=== PATIENT | female | born 1950 | race African-American/Black ===

== ENCOUNTER → 2017-05-29 | Outpatient (CLI) | payer MEDICARE, MEDICAID ==
[~2017-05-29] MED LIST: ASPI-1158 PO; ASPI-1159 PO; CELE200C PO; CELE50CA MT; CLOP75TA33 PO; DEXL60CA3 PO; DICY20TA54 PO; HYDR-523 PO; HYDR25TA PO; IBUP-1636 PO; IRBE300T18 PO; IRBE75TA10 MT; METO25TA6 PO; TRAM50TA73 PO; ZOLP5TAB2 PO
[2017-05-29 16:09] LABS: PARTIAL THROMBOPLASTIN TIME 25.4 sec (23.4-31.0); PROTHROMBIN TIME 10.5 sec (9.4-11.6)
== END | disposition home or self-care (01) ==
LOC: LAB 15:07
PROVIDERS: ATTEND Internal Medicine Pulmonary Disease
DX: I65.23 Occlusion and stenosis of bilateral carotid arteries (principal); M47.16 Other spondylosis with myelopathy, lumbar region; K58.9 Irritable bowel syndrome, unspecified; M79.1 Myalgia
CPT/HCPCS: 36415; 85610; 85730; 86850; 86900; 86920

== ENCOUNTER 2017-06-10 06:36 | Inpatient (IN) | payer MEDICARE, MEDICAID ==
[~2017-06-10] VITALS: Ht 165.1 cm; Wt 88.9 kg
[2017-06-10] VITALS (29 sets, daily range): BP systolic 90–145; BP diastolic 38–110
[~2017-06-10 06:36] MED LIST changes: -ASPI-1158 PO; -ASPI-1159 PO; -CELE50CA MT; -IBUP-1636 PO; -IRBE75TA10 MT
[2017-06-10] MEDS ORDERED: THROMBIN (BOVINE) 5000 UNITS/VIAL TOP ONE (07:45)
[2017-06-10] MEDS ORDERED: BACITRACIN 50,000 UNITS/VIAL ONE ×2 (07:45→07:46)
[2017-06-10] MEDS ORDERED: GELATIN SPONGE,ABSORBABLE SZ 100 ONE (07:45)
[2017-06-10] MEDS ORDERED: NORMAL SALINE 0.9% 10 ML SYR ONE (07:45)
[2017-06-10] MEDS ORDERED: LIDOCAINE HCL 1%/EPI 1:200,000 30 ML VIAL ONE (07:45)
[2017-06-10 07:54] LABS: PARTIAL THROMBOPLASTIN TIME 24.7 sec (23.4-31.0); PROTHROMBIN TIME 10.5 sec (9.4-11.6)
[2017-06-10] MEDS ORDERED: SODIUM CHLORIDE 0.9% 1,000 ML IV SCH (08:00)
[2017-06-10] MEDS ORDERED: ASPI-1159 PO (08:03)
[2017-06-10] MEDS ORDERED: IBUP-1636 PO (08:03)
[2017-06-10] MEDS ORDERED: MIDAZOLAM HCL 2 MG/2 ML VIAL ONE (10:29)
[2017-06-10] MEDS ORDERED: FENTANYL CITRATE/PF 50MCG/ML 2ML VIAL ONE (10:29)
[2017-06-10] MEDS ORDERED: ACETAMINOPHEN 325MG TABLET PO PRN (11:00)
[2017-06-10] MEDS ORDERED: IPRATROPIUM/ALBUTEROL 0.5-3(2.5)MG/3ML NEB INH PRN (11:00)
[2017-06-10] MEDS ORDERED: DIPHENHYDRAMINE 50MG/ML VIAL IV PRN (11:00)
[2017-06-10] MEDS ORDERED: MORPHINE SULFATE 2 MG/ML CPJ (NOT FOR IM USE) IV PRN (11:00)
[2017-06-10] MEDS ORDERED: HYDROCODONE/ACETAMINOPHEN 10/325MG TABLET PO PRN (11:00)
[2017-06-10] MEDS ORDERED: HYDROMORPHONE HCL/PF 2MG/ML (OR) ONE (11:09)
[2017-06-10] MEDS ORDERED: GLYCOPYRROLATE 0.2 MG/ML 2ML VIAL ONE (13:27)
[2017-06-10] MEDS ORDERED: NEOSTIGMINE METHYLSULFATE 1MG/ML 10 ML VIAL ONE (13:27)
[2017-06-10] MEDS ORDERED: SODIUM CHLORIDE 0.9% 10ML VIAL ONE (13:30)
[2017-06-10] MEDS ORDERED: LIDOCAINE HCL 1% 20ML VIAL (Pyxis) INJ ONE (13:30)
[2017-06-10] MEDS ORDERED: SUCCINYLCHOLINE CHLORIDE 200MG/10ML VIAL IV ONE (13:30)
[2017-06-10] MEDS ORDERED: ROCURONIUM BROMIDE 10MG/ML VIAL 5ML IV ONE (13:30)
[2017-06-10] MEDS ORDERED: DEXAMETHASONE 4MG/ML 1ML VIAL ONE (13:30)
[2017-06-10] MEDS ORDERED: CEFAZOLIN SODIUM 1000MG/VIAL ONE (13:30)
[2017-06-10] MEDS ORDERED: PROPOFOL 200MG/20ML VIAL IV ONE (13:30)
[2017-06-10] MEDS ORDERED: CEFAZOLIN SODIUM 1000MG/VIAL IV SCH (14:00)
[2017-06-10] MEDS ORDERED: ONDANSETRON INJ IV PRN (14:00)
[2017-06-10] MEDS ORDERED: NALOXONE INJ IV PRN (14:00)
[2017-06-10] MEDS ORDERED: DIPHENHYDRAMINE INJ IV PRN (14:00)
[2017-06-10] MEDS: HYDROMORPHONE PCA 10MG/50ML IV PRN (14:08)
[2017-06-10] MEDS: DEXT 5%/LACTATED RINGERS 1,000 ML IV SCH (17:29)
[2017-06-10] MEDS ORDERED: NICARDIPINE 100 MG in SODIUM CHLORIDE 0.9% 60 ML IV PRN (18:30)
[2017-06-10] MEDS: CEFAZOLIN 1000MG PREMIX 50 ML IV SCH (18:56)
[2017-06-10] MEDS: PANTOPRAZOLE 40MG DR TABLET PO SCH (21:00)
[2017-06-10] MEDS ORDERED: PNEUMOCOCCAL 23-VAL P-SAC VAC 0.5 ML IM ONE (21:15)
[2017-06-10] MEDS: DICYCLOMINE HCL 20MG TABLET PO SCH (23:39)
[2017-06-11] VITALS (64 sets, daily range): BP systolic 83–140; BP diastolic 28–82
[2017-06-11] MEDS: CEFAZOLIN 1000MG PREMIX 50 ML IV SCH ×2 (02:17→10:00)
[2017-06-11] MEDS: DEXT 5%/LACTATED RINGERS 1,000 ML IV SCH ×2 (04:17→07:00)
[2017-06-11] MEDS: DICYCLOMINE HCL 20MG TABLET PO SCH ×3 (06:00→23:40)
[2017-06-11 06:11] LABS: HEMOGLOBIN 9.8 g/dL (12.0-16.0); MEAN CORPUSCULAR HEMOGLOBIN 33.7 pg (28.0-32.0); MEAN CORPUSCULAR VOLUME 99.5 fL (81.0-99.0); PLATELET 163 x1000/uL (130-400); RED BLOOD CELL COUNT 2.92 mill/uL (4.2-5.4); RED CELL DISTRIBUTION WIDTH 13.2 % (11.6-14.6)
[2017-06-11] MEDS: PANTOPRAZOLE 40MG DR TABLET PO SCH (06:30)
[2017-06-11 06:36] LABS: CARBON DIOXIDE 25 mEq/L (21-32); CHLORIDE 112 mEq/L (98-107)
[2017-06-11] MEDS ORDERED: LOSARTAN POTASSIUM 100 MG TABLET PO SCH (09:00)
[2017-06-11] MEDS ORDERED: ONDANSETRON HCL 4MG/2ML VIAL IV PRN (09:00)
[2017-06-11] MEDS: HYDROMORPHONE PCA 10MG/50ML IV PRN (16:31)
[2017-06-12] VITALS (11 sets, daily range): BP systolic 119–142; BP diastolic 59–101
[2017-06-12] MEDS: MORPHINE SULFATE 4 MG/ML CPJ (NOT FOR IM USE) IV PRN ×3 (04:38→18:37)
[2017-06-12] MEDS: DICYCLOMINE HCL 20MG TABLET PO SCH ×3 (06:24→17:31)
[2017-06-12] MEDS ORDERED: PANTOPRAZOLE 40MG DR TABLET PO SCH (06:30)
[2017-06-12] MEDS: LOSARTAN POTASSIUM 100 MG TABLET PO SCH (09:42)
[2017-06-12] MEDS: HYDROMORPHONE PCA 10MG/50ML IV PRN (13:03)
[2017-06-12] MEDS: DOCUSATE SODIUM 100MG CAPSULE PO SCH (17:31)
[2017-06-12] MEDS: POLYETHYLENE GLYCOL 3350 (17GM) 1 DOSE PACK PO SCH (21:50)
[2017-06-13] VITALS (7 sets, daily range): BP systolic 104–142; BP diastolic 51–73
[2017-06-13] MEDS: MORPHINE SULFATE 4 MG/ML CPJ (NOT FOR IM USE) IV PRN ×4 (05:36→22:07)
[2017-06-13] MEDS: DICYCLOMINE HCL 20MG TABLET PO SCH ×4 (05:41→17:15)
[2017-06-13] MEDS: PANTOPRAZOLE 40MG DR TABLET PO SCH (07:14)
[2017-06-13] MEDS: LOSARTAN POTASSIUM 100 MG TABLET PO SCH (08:42)
[2017-06-13] MEDS: DOCUSATE SODIUM 100MG CAPSULE PO SCH ×2 (08:43→17:15)
[2017-06-13] MEDS ORDERED: LACTULOSE 20G/30ML UDC PO SCH (10:00)
[2017-06-13] MEDS ORDERED: HYDROCODONE/ACETAMINOPHEN 10/325MG TABLET PO PRN (19:00)
[2017-06-13] MEDS: POLYETHYLENE GLYCOL 3350 (17GM) 1 DOSE PACK PO SCH (22:03)
[2017-06-14] VITALS: BP 116/53
[2017-06-14] MEDS: DICYCLOMINE HCL 20MG TABLET PO SCH ×3 (00:23→11:35)
[2017-06-14] MEDS: MORPHINE SULFATE 4 MG/ML CPJ (NOT FOR IM USE) IV PRN ×2 (02:37→11:22)
[2017-06-14 04:00] VITALS: BP 114/89
[2017-06-14] MEDS: PANTOPRAZOLE 40MG DR TABLET PO SCH (06:49)
[2017-06-14 07:48] LABS: BASOPHILS % 0.4 % (0.0-2.0); HEMOGLOBIN. 9.9 g/dL (12.0-16.0); LYMPHOCYTES % 16.6 % (20.0-50.0); MEAN CORPUSCULAR HEMOGLOBIN 33.4 pg (28.0-32.0); MEAN PLATELET VOLUME 8.8 fl (7.4-10.4); MONOCYTES % 6.7 % (2.0-8.0); NEUTROPHILS % 75.3 % (40.0-76.0); PLATELET 185 x1000/uL (130-400); RED BLOOD CELL COUNT 2.96 mill/uL (4.2-5.4)
[2017-06-14 08:00] VITALS: BP 113/79
[2017-06-14 08:34] LABS: CARBON DIOXIDE 27 mEq/L (21-32); CHLORIDE 102 mEq/L (98-107)
[2017-06-14] MEDS: LOSARTAN POTASSIUM 100 MG TABLET PO SCH (08:46)
[2017-06-14] MEDS: DOCUSATE SODIUM 100MG CAPSULE PO SCH (08:46)
[2017-06-14] MEDS ORDERED: POTASSIUM CHLORIDE 20MEQ TABLET SR PO SCH (10:15)
[2017-06-14] MEDS ORDERED: BISACODYL 10MG SUPP PR NR (11:15)
[2017-06-14] MEDS: LACTULOSE 20G/30ML UDC PO SCH ×2 (11:33→13:00)
[2017-06-14 12:00] VITALS: BP 103/52
[2017-06-14] MEDS ORDERED: GABAPENTIN 100MG CAPSULE PO SCH (14:00)
[2017-06-14 16:24] VITALS: BP 18/103
[2017-06-15] MEDS ORDERED: METO25TA6 PO (01:05)
[2017-06-15] MEDS ORDERED: CELE50CA MT (01:05)
[2017-06-15] MEDS ORDERED: IRBE75TA10 MT (01:05)
[2017-06-15] MEDS ORDERED: ZOLP5TAB2 PO (01:05)
[2017-06-15] MEDS ORDERED: DEXL60CA3 PO (01:05)
[2017-06-15] MEDS ORDERED: HYDR-523 PO (01:05)
[2017-06-15] MEDS ORDERED: HYDR25TA PO (01:05)
[2017-06-15] MEDS ORDERED: ASPI-1158 PO (01:05)
== END 2017-06-14 17:20 | DRG 460 ==
LOC: OR 06:36 → MICUSO 06:37 → 6EST 06-12 02:45 → UNDODISIN 06-12 12:55
PROVIDERS: ADMIT Internal Medicine Pulmonary Disease; ATTEND Internal Medicine Pulmonary Disease
PROC: 0ST20ZZ Resection of Lumbar Vertebral Disc, Open Approach (ICD-10-PCS; 2017-06-10)
PROC: 01NB0ZZ Release Lumbar Nerve, Open Approach (ICD-10-PCS; 2017-06-10)
PROC: 0SP004Z Removal of Internal Fixation Device from Lumbar Vertebral Joint, Open Approach (ICD-10-PCS; 2017-06-10)
PROC: 0SP304Z Removal of Internal Fixation Device from Lumbosacral Joint, Open Approach (ICD-10-PCS; 2017-06-10)
PROC: 0SG00A1 (ICD-10-PCS; principal; 2017-06-10 11:00)
DX: M43.16 Spondylolisthesis, lumbar region (principal); E46 Unspecified protein-calorie malnutrition; I10 Essential (primary) hypertension; K21.9 Gastro-esophageal reflux disease without esophagitis; K58.9 Irritable bowel syndrome, unspecified; I73.9 Peripheral vascular disease, unspecified; D64.9 Anemia, unspecified; D72.829 Elevated white blood cell count, unspecified; F17.210 Nicotine dependence, cigarettes, uncomplicated; G89.4 Chronic pain syndrome; M48.06 Spinal stenosis, lumbar region; M79.7 Fibromyalgia; N31.9 Neuromuscular dysfunction of bladder, unspecified; R32 Unspecified urinary incontinence; K59.00 Constipation, unspecified; Z96.651 Presence of right artificial knee joint; Z90.710 Acquired absence of both cervix and uterus; Z83.3 Family history of diabetes mellitus; Z98.1 Arthrodesis status; Z88.0 Allergy status to penicillin; Z81.8 Family history of other mental and behavioral disorders; Z84.89 Family history of other specified conditions; Z68.32 Body mass index [BMI] 32.0-32.9, adult
CPT/HCPCS: 36415; 72100; 80048; 85025; 85027; 85610; 85730; 86850; 86900; 88300; 88304; 88311; 90732; 93970; 95863; 95925; 95926; 97163; 97166; 97530; 97760; A4216; C1713; J0330; J0690; J1100; J1170; J2250; J2270; J2704; J2710; J3010; J3490; J7030; J7050; J7121

== ENCOUNTER 2017-06-14 17:30 | Inpatient (IN) | payer MEDICARE, MEDICAID ==
[~2017-06-14] VITALS: Ht 165.1 cm; Wt 88.5 kg
[~2017-06-14 17:30] MED LIST changes: +ASPI-1159 PO; +IBUP-1636 PO
[2017-06-14 18:00] VITALS: BP 113/52
[2017-06-14] MEDS ORDERED: MORPHINE SULFATE 4 MG/ML CPJ (NOT FOR IM USE) IV PRN (19:45)
[2017-06-14] MEDS ORDERED: ONDANSETRON HCL 4MG/2ML VIAL IV PRN (19:45)
[2017-06-14] MEDS ORDERED: IPRATROPIUM/ALBUTEROL 0.5-3(2.5)MG/3ML NEB HHN PRN (19:45)
[2017-06-14 20:00] VITALS: BP 132/81
[2017-06-14] MEDS: MORPHINE SULFATE 4 MG/ML CPJ (NOT FOR IM USE) IV PRN (20:18)
[2017-06-14] MEDS: POLYETHYLENE GLYCOL 3350 (17GM) 1 DOSE PACK PO SCH (20:25)
[2017-06-14] MEDS: ENOXAPARIN 40MG/0.4ML SYR SUBCUT SCH (20:31)
[2017-06-14] MEDS: GABAPENTIN 100MG CAPSULE PO SCH (22:43)
[2017-06-14] MEDS: DICYCLOMINE HCL 20MG TABLET PO SCH (23:06)
[2017-06-14] MEDS: ACETAMINOPHEN 325MG TABLET PO PRN (23:34)
[2017-06-15] MEDS: MORPHINE SULFATE 4 MG/ML CPJ (NOT FOR IM USE) IV PRN ×3 (00:44→15:24)
[2017-06-15] MEDS ORDERED: HYDR-523 PO (01:05)
[2017-06-15] MEDS ORDERED: METO25TA6 PO (01:05)
[2017-06-15] MEDS ORDERED: DEXL60CA3 PO (01:05)
[2017-06-15] MEDS ORDERED: ASPI-1158 PO (01:05)
[2017-06-15] MEDS ORDERED: IRBE75TA10 MT (01:05)
[2017-06-15] MEDS ORDERED: HYDR25TA PO (01:05)
[2017-06-15] MEDS ORDERED: ZOLP5TAB2 PO (01:05)
[2017-06-15] MEDS ORDERED: CELE50CA MT (01:05)
[2017-06-15] MEDS: DICYCLOMINE HCL 20MG TABLET PO SCH ×4 (05:28→23:05)
[2017-06-15] MEDS: GABAPENTIN 100MG CAPSULE PO SCH ×3 (05:28→22:13)
[2017-06-15] MEDS: PANTOPRAZOLE 40MG DR TABLET PO SCH (06:45)
[2017-06-15 07:29] LABS: CARBON DIOXIDE 29 mEq/L (21-32); CHLORIDE 102 mEq/L (98-107); PREALBUMIN 13.4 mg/dL (20.0-40.0)
[2017-06-15 07:39] LABS: BASOPHILS % 0.4 % (0.0-2.0); EOSINOPHILS % 1.9 % (0.0-5.0); HEMOGLOBIN. 9.4 g/dL (12.0-16.0); LYMPHOCYTES % 20.5 % (20.0-50.0); MEAN CORPUSCULAR HEMOGLOBIN 34.5 pg (28.0-32.0); MEAN CORPUSCULAR VOLUME 99.2 fL (81.0-99.0); MEAN PLATELET VOLUME 8.9 fl (7.4-10.4); MONOCYTES % 10.6 % (2.0-8.0); NEUTROPHILS % 66.6 % (40.0-76.0); PLATELET 204 x1000/uL (130-400); RED BLOOD CELL COUNT 2.72 mill/uL (4.2-5.4); RED CELL DISTRIBUTION WIDTH 12.5 % (11.6-14.6)
[2017-06-15 08:00] VITALS: BP 114/46
[2017-06-15] MEDS: LOSARTAN POTASSIUM 100 MG TABLET PO SCH (09:00)
[2017-06-15] MEDS: DOCUSATE SODIUM 100MG CAPSULE PO SCH ×2 (09:06→17:43)
[2017-06-15] MEDS: ACETAMINOPHEN 325MG TABLET PO PRN (14:47)
[2017-06-15 19:00] VITALS: BP 95/56
[2017-06-15 21:31] LABS: CLARITY URINE CLEAR (CLEAR); COLOR URINE DARK YELLOW (YELLOW); GLUCOSE URINE NEGATIVE (NEGATIVE); KETONES URINE NEGATIVE (NEGATIVE); LEUKOCYTE ESTERASE URINE TRACE (NEGATIVE); NITRITE URINE NEGATIVE (NEGATIVE); OCCULT BLOOD URINE NEGATIVE (NEGATIVE); PH URINE 5.5 (4.5-8.0); PROTEIN URINE NEGATIVE (NEGATIVE)
[2017-06-15] MEDS: ENOXAPARIN 40MG/0.4ML SYR SUBCUT SCH (22:13)
[2017-06-15] MEDS: POLYETHYLENE GLYCOL 3350 (17GM) 1 DOSE PACK PO SCH (22:13)
[2017-06-15] MEDS: HYDROCODONE/ACETAMINOPHEN 10/325MG TABLET PO PRN (22:20)
[2017-06-16] MEDS: ACETAMINOPHEN 325MG TABLET PO PRN (02:21)
[2017-06-16] MEDS: PANTOPRAZOLE 40MG DR TABLET PO SCH (06:48)
[2017-06-16] MEDS: GABAPENTIN 100MG CAPSULE PO SCH ×3 (06:48→21:48)
[2017-06-16] MEDS: DICYCLOMINE HCL 20MG TABLET PO SCH ×3 (06:48→17:37)
[2017-06-16] MEDS: HYDROCODONE/ACETAMINOPHEN 10/325MG TABLET PO PRN ×3 (06:51→16:01)
[2017-06-16 08:00] VITALS: BP 105/60
[2017-06-16 08:34] VITALS: BP 127/71
[2017-06-16] MEDS: DOCUSATE SODIUM 100MG CAPSULE PO SCH ×2 (08:34→17:37)
[2017-06-16] MEDS: LOSARTAN POTASSIUM 100 MG TABLET PO SCH (08:34)
[2017-06-16 20:00] VITALS: BP 101/45
[2017-06-16] MEDS: POLYETHYLENE GLYCOL 3350 (17GM) 1 DOSE PACK PO SCH (21:48)
[2017-06-16] MEDS: ENOXAPARIN 40MG/0.4ML SYR SUBCUT SCH (21:48)
[2017-06-17] MEDS: DICYCLOMINE HCL 20MG TABLET PO SCH ×5 (00:15→23:29)
[2017-06-17] MEDS: ACETAMINOPHEN 325MG TABLET PO PRN (00:16)
[2017-06-17] MEDS: GABAPENTIN 100MG CAPSULE PO SCH ×3 (05:46→21:47)
[2017-06-17] MEDS: PANTOPRAZOLE 40MG DR TABLET PO SCH (05:46)
[2017-06-17] MEDS: HYDROCODONE/ACETAMINOPHEN 10/325MG TABLET PO PRN ×4 (05:54→22:02)
[2017-06-17 06:36] LABS: BASOPHILS % 0.4 % (0.0-2.0); EOSINOPHILS % 2.4 % (0.0-5.0); HEMATOCRIT. 26.9 % (36.0-48.0); HEMOGLOBIN. 9.3 g/dL (12.0-16.0); LYMPHOCYTES % 22.9 % (20.0-50.0); MEAN PLATELET VOLUME 8.5 fl (7.4-10.4); MONOCYTES % 9.8 % (2.0-8.0); NEUTROPHILS % 64.5 % (40.0-76.0); PLATELET 292 x1000/uL (130-400); RED BLOOD CELL COUNT 2.75 mill/uL (4.2-5.4); RED CELL DISTRIBUTION WIDTH 12.8 % (11.6-14.6)
[2017-06-17 06:54] LABS: FERRITIN 106 ng/mL (10-291)
[2017-06-17 07:24] LABS: CARBON DIOXIDE 26 mEq/L (21-32); CHLORIDE 101 mEq/L (98-107); HDL CHOLESTEROL 31 mg/dL (40-59); LDL CHOLESTEROL 47 mg/dL (5-100); PHOSPHORUS 2.8 mg/dL (2.5-4.9); TOTAL IRON BINDING CAPACITY 248 ug/dL (250-450)
[2017-06-17 08:00] VITALS: BP_SYST 121; BP_SYST 99; BP_DIAS 64; BP_DIAS 73
[2017-06-17 08:20] LABS: VITAMIN B12 SERUM 1953 pg/mL (211-911)
[2017-06-17 08:32] LABS: FOLIC ACID (FOLATE) SERUM > 20.00 ng/mL (>5.38)
[2017-06-17] MEDS: DOCUSATE SODIUM 100MG CAPSULE PO SCH ×2 (09:54→17:41)
[2017-06-17] MEDS: LOSARTAN POTASSIUM 100 MG TABLET PO SCH (09:54)
[2017-06-17 17:10] VITALS: BP 116/44
[2017-06-17] MEDS: CELECOXIB 200MG CAPSULE PO SCH (19:15)
[2017-06-17 20:00] VITALS: BP 115/51
[2017-06-17] MEDS: ENOXAPARIN 40MG/0.4ML SYR SUBCUT SCH (20:00)
[2017-06-17] MEDS: POLYETHYLENE GLYCOL 3350 (17GM) 1 DOSE PACK PO SCH (21:00)
[2017-06-17] MEDS: IRON SUCROSE COMPLEX 100 MG in SODIUM CHLORIDE 0.9% 100 ML IV SCH (23:29)
[2017-06-18] MEDS: ACETAMINOPHEN 325MG TABLET PO PRN (02:54)
[2017-06-18] MEDS: DICYCLOMINE HCL 20MG TABLET PO SCH ×3 (07:04→18:12)
[2017-06-18] MEDS: GABAPENTIN 100MG CAPSULE PO SCH ×3 (07:04→22:02)
[2017-06-18] MEDS: HYDROCODONE/ACETAMINOPHEN 10/325MG TABLET PO PRN ×3 (07:06→22:04)
[2017-06-18] MEDS: PANTOPRAZOLE 40MG DR TABLET PO SCH (07:07)
[2017-06-18 08:00] VITALS: BP 99/44
[2017-06-18] MEDS: LOSARTAN POTASSIUM 100 MG TABLET PO SCH (09:00)
[2017-06-18] MEDS: DOCUSATE SODIUM 100MG CAPSULE PO SCH ×2 (09:28→18:12)
[2017-06-18] MEDS: CELECOXIB 200MG CAPSULE PO SCH ×2 (09:28→22:02)
[2017-06-18 09:35] VITALS: BP_SYST 102; BP_DIAS 42; BP_DIAS 72
[2017-06-18 12:50] VITALS: BP 116/40
[2017-06-18 20:00] VITALS: BP 108/57
[2017-06-18] MEDS: IRON SUCROSE COMPLEX 100 MG in SODIUM CHLORIDE 0.9% 100 ML IV SCH (21:33)
[2017-06-18] MEDS: ENOXAPARIN 40MG/0.4ML SYR SUBCUT SCH (22:02)
[2017-06-18] MEDS: POLYETHYLENE GLYCOL 3350 (17GM) 1 DOSE PACK PO SCH (22:02)
[2017-06-19] MEDS: DICYCLOMINE HCL 20MG TABLET PO SCH ×4 (00:32→17:30)
[2017-06-19] MEDS: ACETAMINOPHEN 325MG TABLET PO PRN (01:28)
[2017-06-19 06:46] LABS: BASOPHILS % 0.9 % (0.0-2.0); EOSINOPHILS % 2.1 % (0.0-5.0); HEMATOCRIT. 26.9 % (36.0-48.0); HEMOGLOBIN. 9.5 g/dL (12.0-16.0); LYMPHOCYTES % 28.3 % (20.0-50.0); MEAN CORPUSCULAR HEMOGLOBIN 34.4 pg (28.0-32.0); MEAN CORPUSCULAR VOLUME 97.5 fL (81.0-99.0); MEAN PLATELET VOLUME 8.2 fl (7.4-10.4); MONOCYTES % 9.6 % (2.0-8.0); NEUTROPHILS % 59.1 % (40.0-76.0); PLATELET 364 x1000/uL (130-400); RED BLOOD CELL COUNT 2.76 mill/uL (4.2-5.4); RED CELL DISTRIBUTION WIDTH 12.8 % (11.6-14.6)
[2017-06-19] MEDS: GABAPENTIN 100MG CAPSULE PO SCH ×3 (06:53→21:18)
[2017-06-19] MEDS: PANTOPRAZOLE 40MG DR TABLET PO SCH (06:53)
[2017-06-19 07:45] LABS: CARBON DIOXIDE 25 mEq/L (21-32); CHLORIDE 104 mEq/L (98-107)
[2017-06-19 08:00] VITALS: BP 118/48
[2017-06-19] MEDS: LOSARTAN POTASSIUM 100 MG TABLET PO SCH (08:06)
[2017-06-19] MEDS: CELECOXIB 200MG CAPSULE PO SCH ×2 (08:06→21:17)
[2017-06-19] MEDS: HYDROCODONE/ACETAMINOPHEN 10/325MG TABLET PO PRN ×2 (08:07→20:38)
[2017-06-19] MEDS: DOCUSATE SODIUM 100MG CAPSULE PO SCH (08:08)
[2017-06-19] MEDS ORDERED: TEMAZEPAM 15MG CAPSULE PO PRN (16:45)
[2017-06-19 20:00] VITALS: BP 103/41
[2017-06-19] MEDS: IRON SUCROSE COMPLEX 100 MG in SODIUM CHLORIDE 0.9% 100 ML IV SCH (20:01)
[2017-06-19] MEDS: POLYETHYLENE GLYCOL 3350 (17GM) 1 DOSE PACK PO SCH (21:00)
[2017-06-19] MEDS: ENOXAPARIN 40MG/0.4ML SYR SUBCUT SCH (21:18)
[2017-06-20] MEDS: DICYCLOMINE HCL 20MG TABLET PO SCH ×4 (00:21→17:09)
[2017-06-20] MEDS: GABAPENTIN 100MG CAPSULE PO SCH ×3 (06:43→20:24)
[2017-06-20] MEDS: PANTOPRAZOLE 40MG DR TABLET PO SCH (06:43)
[2017-06-20 08:00] VITALS: BP 99/44
[2017-06-20] MEDS: CELECOXIB 200MG CAPSULE PO SCH ×2 (08:13→20:22)
[2017-06-20] MEDS: HYDROCODONE/ACETAMINOPHEN 10/325MG TABLET PO PRN ×2 (08:15→20:23)
[2017-06-20] MEDS: LOSARTAN POTASSIUM 100 MG TABLET PO SCH (08:17)
[2017-06-20 20:00] VITALS: BP 107/50
[2017-06-20] MEDS: POLYETHYLENE GLYCOL 3350 (17GM) 1 DOSE PACK PO SCH (20:23)
[2017-06-20] MEDS: IRON SUCROSE COMPLEX 100 MG in SODIUM CHLORIDE 0.9% 100 ML IV SCH (20:24)
[2017-06-20] MEDS: TEMAZEPAM 15MG CAPSULE PO PRN (22:57)
[2017-06-21] MEDS: HYDROCODONE/ACETAMINOPHEN 10/325MG TABLET PO PRN ×3 (03:09→18:58)
[2017-06-21] MEDS: ACETAMINOPHEN 325MG TABLET PO PRN (05:59)
[2017-06-21] MEDS: GABAPENTIN 100MG CAPSULE PO SCH ×3 (06:11→21:34)
[2017-06-21] MEDS: DICYCLOMINE HCL 20MG TABLET PO SCH ×4 (06:11→17:43)
[2017-06-21 08:00] VITALS: BP 108/49
[2017-06-21] MEDS: CELECOXIB 200MG CAPSULE PO SCH ×2 (08:48→21:34)
[2017-06-21] MEDS: LOSARTAN POTASSIUM 100 MG TABLET PO SCH (08:49)
[2017-06-21] MEDS: FAMOTIDINE 20MG TABLET PO SCH (08:49)
[2017-06-21 17:12] LABS: 25-HYDROXY VITAMIN D3 41 ng/mL (.)
[2017-06-21 20:00] VITALS: BP 92/68
[2017-06-21] MEDS: POLYETHYLENE GLYCOL 3350 (17GM) 1 DOSE PACK PO SCH (21:34)
[2017-06-21] MEDS: IRON SUCROSE COMPLEX 100 MG in SODIUM CHLORIDE 0.9% 100 ML IV SCH (22:06)
[2017-06-22] MEDS: DICYCLOMINE HCL 20MG TABLET PO SCH ×4 (00:28→18:00)
[2017-06-22] MEDS: TEMAZEPAM 15MG CAPSULE PO PRN (00:30)
[2017-06-22] MEDS: ACETAMINOPHEN 325MG TABLET PO PRN (02:07)
[2017-06-22] MEDS: HYDROCODONE/ACETAMINOPHEN 10/325MG TABLET PO PRN ×4 (05:23→22:34)
[2017-06-22] MEDS: GABAPENTIN 100MG CAPSULE PO SCH ×3 (05:50→21:44)
[2017-06-22 08:00] VITALS: BP 106/45
[2017-06-22 08:01] VITALS: BP 106/45
[2017-06-22] MEDS: LOSARTAN POTASSIUM 100 MG TABLET PO SCH (08:34)
[2017-06-22] MEDS: FAMOTIDINE 20MG TABLET PO SCH ×2 (08:35→21:45)
[2017-06-22] MEDS: CELECOXIB 200MG CAPSULE PO SCH ×2 (08:35→21:44)
[2017-06-22] MEDS: LACTULOSE 20G/30ML UDC PO SCH ×3 (14:27→21:44)
[2017-06-22] MEDS ORDERED: MAGNESIUM/ALUMINUM HYDROXIDE/SIMETHICONE 30ML UDC PO PRN (17:00)
[2017-06-22 20:00] VITALS: BP 120/51
[2017-06-22] MEDS: POLYETHYLENE GLYCOL 3350 (17GM) 1 DOSE PACK PO SCH (21:00)
[2017-06-23] MEDS: HYDROCODONE/ACETAMINOPHEN 10/325MG TABLET PO PRN ×2 (03:35→08:29)
[2017-06-23] MEDS: DICYCLOMINE HCL 20MG TABLET PO SCH ×3 (05:33→12:41)
[2017-06-23] MEDS: GABAPENTIN 100MG CAPSULE PO SCH (05:35)
[2017-06-23 08:00] VITALS: BP 136/65
[2017-06-23] MEDS: LOSARTAN POTASSIUM 100 MG TABLET PO SCH (08:28)
[2017-06-23] MEDS: FAMOTIDINE 20MG TABLET PO SCH (08:28)
[2017-06-23] MEDS: LACTULOSE 20G/30ML UDC PO SCH ×2 (08:28→12:36)
[2017-06-23] MEDS: CELECOXIB 200MG CAPSULE PO SCH (08:28)
[2017-06-23 12:11] VITALS: BP 132/50
[2017-07-20] MEDS ORDERED: ENOXAPARIN 40MG/0.4ML SYR SUBCUT SCH (20:00)
== END 2017-06-23 14:05 | disposition home health service (06) | DRG 552 ==
PROVIDERS: ADMIT Physical Medicine & Rehabilitation Spinal Cord Injury Medicine; ATTEND Internal Medicine Pulmonary Disease
DX: M43.16 Spondylolisthesis, lumbar region (principal); E46 Unspecified protein-calorie malnutrition; G82.20 Paraplegia, unspecified; I10 Essential (primary) hypertension; F17.210 Nicotine dependence, cigarettes, uncomplicated; D50.9 Iron deficiency anemia, unspecified; I73.9 Peripheral vascular disease, unspecified; D72.829 Elevated white blood cell count, unspecified; K21.9 Gastro-esophageal reflux disease without esophagitis; K58.9 Irritable bowel syndrome, unspecified; G89.4 Chronic pain syndrome; G47.00 Insomnia, unspecified; R26.9 Unspecified abnormalities of gait and mobility; M79.7 Fibromyalgia; Z96.651 Presence of right artificial knee joint; Z90.710 Acquired absence of both cervix and uterus; Z88.2 Allergy status to sulfonamides; Z88.0 Allergy status to penicillin; Z88.8 Allergy status to other drugs, medicaments and biological substances; Z79.899 Other long term (current) drug therapy; Z98.1 Arthrodesis status; Z68.32 Body mass index [BMI] 32.0-32.9, adult
CPT/HCPCS: 36415; 71020; 80048; 80053; 80061; 81001; 82306; 82607; 82728; 82746; 83036; 83540; 83550; 83735; 84100; 84134; 84443; 84630; 85025; 87086; 93970; 97110; 97116; 97163; 97166; 97530; 97535; C1893; J1650; J2270; J7050

== ENCOUNTER → 2020-07-13 | Outpatient (CLI) | payer MEDICARE, MEDICAID ==
[~2020-07-13] MED LIST changes: +ASPI-1158 PO; -ASPI-1159 PO; +CELE50CA MT; -CLOP75TA33 PO; +CLOP75TA4 PO; -DICY20TA54 PO; +HYDR-4005 PO; -IBUP-1636 PO; +IRBE150T24 PO; -IRBE300T18 PO; +IRBE75TA9 MT; +OXYB5TAB17 PO; -TRAM50TA73 PO
== END | disposition home or self-care (01) ==
LOC: LAB 12:40
PROVIDERS: ATTEND Neurological Surgery
DX: Z01.812 Encounter for preprocedural laboratory examination (principal); Z20.828 Contact with and (suspected) exposure to other viral communicable diseases
CPT/HCPCS: C9803; U0003